=== PATIENT | female | born 1985 | race Caucasian/White ===

== ENCOUNTER 2017-06-06 14:13 | Outpatient (CLI) | END 2017-06-06 18:35 | disposition home or self-care (01) ==

== ENCOUNTER 2017-06-09 17:37 | Outpatient (CLI) | END 2017-06-09 21:25 | disposition home or self-care (01) ==

== ENCOUNTER 2017-06-12 18:04 | Outpatient (CLI) | END 2017-06-12 21:28 | disposition home or self-care (01) ==

== ENCOUNTER 2017-06-14 10:00 | Inpatient (IN) | END 2017-06-17 15:39 | disposition home or self-care (01) | DRG 766 ==